=== PATIENT | female | born 1995 | race African-American/Black ===

== ENCOUNTER 2020-03-19 07:01 | Day surgery (SDC) | payer MEDICAID, SELFPAY ==
[~2020-03-19] VITALS: Ht 154.9 cm; Wt 93.9 kg
[2020-03-19 07:40] LABS: HCG,QUAL RESULT NEGATIVE (NEGATIVE)
[2020-03-19] MEDS ORDERED: HYDROmorphone 1 MG INJ. 1 MG/ML AMPUL IVP PRN ×2 (08:45)
[2020-03-19] MEDS ORDERED: ONDANSETRON HCL 4 MG/2 ML VIAL IVP PRN (08:45)
[2020-03-19] MEDS ORDERED: ALBUTEROL SULFATE 0.083% 2.5 MG/3 ML VIAL.NEB INH ONE ×2 (10:00→10:19)
[2020-03-19] MEDS ORDERED: HYDROmorphone 1 MG INJ. 1 MG/ML AMPUL ONE (10:30)
[2020-03-19 14:07] VITALS: BP_SYST 127
== END 2020-03-19 13:45 | disposition home or self-care (01) ==
LOC: SDS 07:01 → SMU 07:03 → SDS 13:45
PROVIDERS: ATTEND Obstetrics & Gynecology
DX: N73.6 Female pelvic peritoneal adhesions (postinfective) (principal); N80.9 Endometriosis, unspecified; J45.909 Unspecified asthma, uncomplicated; G89.29 Other chronic pain; Z79.899 Other long term (current) drug therapy; Z20.828 Contact with and (suspected) exposure to other viral communicable diseases
CPT/HCPCS: 36415; 58660; 84703; 86886; 86900; 86901; 94640; C1727; J1170; J7613; U0003

== ENCOUNTER 2022-01-05 14:53 | Emergency (ER) | payer MEDICAID ==
[~2022-01-05] VITALS: Ht 152.4 cm; Wt 93.9 kg
[2022-01-05 15:19] VITALS: BP_SYST 159
--- NOTE | 2022-01-05 15:19 | NUR ---
Pt triaged and placed in waiting room pending MD eval/bed availability.
--- NOTE | 2022-01-05 15:20 | NUR ---
Pt here from home reporting RLQ pain radiating to LLQ 10/10 x 4 days. Pt has hx fibroids and ovarian cysts. Pt also stating she is feeling dizzy. Placed in wheelchair for safety. Urine cup provided for sample. In waiting area pending MD jimenez.
[2022-01-05 15:58] LABS: BASOPHILS % (AUTO) 0.3 % (0.0-2.0); EOSINOPHILS # (AUTO) 0.1 K/uL (0.0-0.4); HEMATOCRIT 34.4 % (36-48); HEMOGLOBIN 11.7 g/dL (12.0-16.0); LYMPHOCYTES # (AUTO) 1.7 K/uL (1.0-5.5); LYMPHOCYTES % (AUTO) 23.9 % (20.5-51.5); MEAN CORPUSCULAR HEMOGLOBIN 26 pg (27-31); MEAN CORPUSCULAR HGB CONC 34 % (32-36); MEAN CORPUSCULAR VOLUME 76 fL (79.0-98.0); MONOCYTES # (AUTO) 0.4 K/uL (0.0-1.0); NEUTROPHILS # (AUTO) 5.1 K/uL (1.8-7.7); NEUTROPHILS % (AUTO) 69.8 % (40.0-70.0); PLATELET COUNT (AUTO) 325 K/uL (130-430); RED BLOOD CELL COUNT(AUTO) 4.53 MIL/uL (4.2-6.2); RED CELL DISTRIBUTION WIDTH 13.7 % (9.0-15.0); WHITE BLOOD COUNT (AUTO) 7.3 K/uL (4.8-10.8)
--- NOTE | 2022-01-05 16:20 | NUR ---
Patient to ER bed H1 for evaluation. Side rails up. Report given to Carole SMITH.
[2022-01-05 16:29] LABS: CALCIUM 8.2 mg/dL (8.4-11.0); CREATININE 0.77 mg/dL (0.55-1.30); POTASSIUM 4.1 mmol/L (3.5-5.1)
[2022-01-05 16:35] LABS: ALBUMIN 3.8 g/dL (3.4-4.8); TOTAL BILIRUBIN 0.2 mg/dL (0.0-1.0)
[2022-01-05 16:37] LABS: BILIRUBIN,URINE NEGATIVE (NEGATIVE); BLOOD, URINE NEGATIVE (NEGATIVE); CLARITY/URINE CLEAR (CLEAR); COLOR,URINE YELLOW (YELLOW); GLUCOSE,URINE NEGATIVE (NEGATIVE); KETONES,URINE NEGATIVE (NEGATIVE); LEUKOCYTE ESTERASE ,URINE NEGATIVE (NEGATIVE); NITRITE, URINE NEGATIVE (NEGATIVE); PROTEIN URINE NEGATIVE (NEGATIVE); UROBILINOGEN,URINE 0.2 (0.2-1.0)
[2022-01-05] MEDS ORDERED: MORPHINE 4 MG INJ. 4 MG/ML VIAL IM ONE ×2 (17:00→19:15)
--- NOTE | 2022-01-05 18:07 | NUR ---
ER at bedside examining patient.
--- NOTE | 2022-01-05 18:09 | NUR ---
Pt with radiology for ultrasound.
[2022-01-05] MEDS ORDERED: HYDR-3917 PO ×2 (19:30→20:31)
[2022-01-05] MEDS ORDERED: FLUCONAZOLE 100 MG TABLET (DIFLUCAN) PO ONE (20:00)
[2022-01-05 20:40] VITALS: BP_SYST 150
--- NOTE | 2022-01-05 20:40 | NUR ---
Patient given written and verbal discharge instructions and verbalizes understanding. ER Dr. Jimenez discussed with patient the results and treatment provided. Patient in stable condition. ID arm band removed. Rx of norco given. Patient educated on pain management and to follow up with PMD. Pain Scale 0. Opportunity for questions provided and answered. Medication side effect fact sheet provided.
== END 2022-01-05 20:40 | disposition home or self-care (01) ==
LOC: SED 14:53
DX: D25.9 Leiomyoma of uterus, unspecified (principal); B37.3 Candidiasis of vulva and vagina; K21.9 Gastro-esophageal reflux disease without esophagitis; Z79.899 Other long term (current) drug therapy; Z88.8 Allergy status to other drugs, medicaments and biological substances
CPT/HCPCS: 36415; 76856; 80053; 81003; 81025; 83690; 84702; 85025; 96372; 99284; J2270

== ENCOUNTER 2022-01-27 17:16 | Emergency (ER) | payer MEDICAID ==
[~2022-01-27] VITALS: Ht 152.4 cm; Wt 93.9 kg
[~2022-01-27 17:16] MED LIST: HYDR-3917 PO
--- NOTE | 2022-01-27 18:48 | NUR ---
Triaged pt and placed in waiting room until bed becomes available. Pt is A&Ox4. Pt c/o abdominal pain 10/10 and right knee pain 6/10 for two weeks. Pt ambulatory with steady gait and coming from home. Allergic to Toradol and Penicillin. Has hx of Asthma, HTN, ovarian cysts, and fibroids. VSS. Skin intact. No chest pain and no sob. No trauma.
[2022-01-27 18:51] VITALS: BP_SYST 150
[2022-01-27 22:51] LABS: BILIRUBIN,URINE NEGATIVE (NEGATIVE); BLOOD, URINE NEGATIVE (NEGATIVE); CLARITY/URINE CLEAR (CLEAR); COLOR,URINE ORANGE (YELLOW); GLUCOSE,URINE NEGATIVE (NEGATIVE); KETONES,URINE NEGATIVE (NEGATIVE); LEUKOCYTE ESTERASE ,URINE NEGATIVE (NEGATIVE); NITRITE, URINE NEGATIVE (NEGATIVE); PROTEIN URINE TRACE (NEGATIVE); UROBILINOGEN,URINE 0.2 (0.2-1.0)
[2022-01-27] MEDS ORDERED: HYDROcodone/ACETAMIN 5-325 MG TAB (NORCO/ VICODIN) PO ONE (23:15)
[2022-01-27 23:16] LABS: BASOPHILS % (AUTO) 0.6 % (0.0-2.0); EOSINOPHILS # (AUTO) 0.1 K/uL (0.0-0.4); EOSINOPHILS % (AUTO) 1.3 % (0.0-4.0); HEMATOCRIT 36.8 % (36-48); HEMOGLOBIN 12.6 g/dL (12.0-16.0); LYMPHOCYTES # (AUTO) 2.5 K/uL (1.0-5.5); LYMPHOCYTES % (AUTO) 37.2 % (20.5-51.5); MEAN CORPUSCULAR HEMOGLOBIN 26 pg (27-31); MEAN CORPUSCULAR HGB CONC 34 % (32-36); MEAN CORPUSCULAR VOLUME 76 fL (79.0-98.0); MONOCYTES # (AUTO) 0.4 K/uL (0.0-1.0); MONOCYTES % (AUTO) 6.2 % (1.7-9.3); NEUTROPHILS # (AUTO) 3.7 K/uL (1.8-7.7); NEUTROPHILS % (AUTO) 54.7 % (40.0-70.0); PLATELET COUNT (AUTO) 279 K/uL (130-430); RED BLOOD CELL COUNT(AUTO) 4.83 MIL/uL (4.2-6.2); RED CELL DISTRIBUTION WIDTH 14.2 % (9.0-15.0); WHITE BLOOD COUNT (AUTO) 6.7 K/uL (4.8-10.8)
[2022-01-27 23:21] LABS: CALCIUM 9.2 mg/dL (8.4-11.0); CREATININE 0.79 mg/dL (0.55-1.30)
[2022-01-27 23:32] LABS: ALBUMIN 4.1 g/dL (3.4-4.8); TOTAL BILIRUBIN 0.3 mg/dL (0.0-1.0)
--- NOTE | 2022-01-27 23:55 | NUR ---
ROB Villavicencio at bedside examining patient.
--- NOTE | 2022-01-27 23:55 | NUR ---
Patient to ER bed 5 to gown for evaluation. Side rails up.
--- NOTE | 2022-01-28 00:10 | NUR ---
Pt came from home with c/o of lower abd pain since 1400 rated 7/10, pt reports it is non-stop. Pt reports right knee pain rated 8/10 for 2 weeks, pt reports hearing a pop. Pt is ambulatory, following commands, and appropriate. Safety precautions in place.
[2022-01-28] MEDS ORDERED: DEXAMETHASONE SOD PHOSPHATE 10 MG/ML VIAL IVP ONE (02:15)
--- NOTE | 2022-01-28 02:25 | NUR ---
Ultrasound being done at bedside. Female ornamenter hand present.
[2022-01-28] MEDS ORDERED: DEXAMETHASONE SOD PHOSPHATE 10 MG/ML VIAL IM ONE (02:45)
[2022-01-28] MEDS ORDERED: HYDR-3917 PO (03:26)
[2022-01-28] MEDS ORDERED: PRED20TA PO (03:26)
[2022-01-28 03:35] VITALS: BP_SYST 144
--- NOTE | 2022-01-28 03:35 | NUR ---
Patient given written and verbal discharge instructions and verbalizes understanding. ER Dr. Parter discussed with patient the results and treatment provided. Patient in stable condition. ID arm band removed. IV catheter removed intact and dressing applied, no active bleeding. Rx of norco and prednisone given. Patient educated on pain management and to follow up with PMD. Pain Scale 4. Opportunity for questions provided and answered. Medication side effect fact sheet provided.
== END 2022-01-28 03:35 | disposition home or self-care (01) ==
LOC: SED 17:16
DX: N83.201 Unspecified ovarian cyst, right side (principal); S86.811A Strain of other muscle(s) and tendon(s) at lower leg level, right leg, initial encounter; K21.9 Gastro-esophageal reflux disease without esophagitis; Z88.8 Allergy status to other drugs, medicaments and biological substances; Z79.899 Other long term (current) drug therapy; X50.9XXA Other and unspecified overexertion or strenuous movements or postures, initial encounter; Y93.89 Activity, other specified; Y92.89 Other specified places as the place of occurrence of the external cause; Y99.8 Other external cause status
CPT/HCPCS: 99285; 80053; 84703; 85025; 36415; 81003; 76830; 76857; 73560; 96372; J1100

== ENCOUNTER 2022-07-06 18:08 | Emergency (ER) | payer MEDICAID ==
[~2022-07-06] VITALS: Ht 172.7 cm; Wt 88.5 kg
[~2022-07-06 18:08] MED LIST changes: +PRED20TA PO
[2022-07-06 18:31] VITALS: BP_SYST 152
[2022-07-06] MEDS ORDERED: ACETAMINOPHEN 325 MG TABLET PO ONE (20:00)
[2022-07-06] MEDS ORDERED: ONDANSETRON 4 MG ODT TAB PO ONE (20:00)
--- NOTE | 2022-07-06 21:27 | NUR ---
27 y/o F, ambulatory to ED with c/o lower abdominal pain radiating to the back x 2-3 days. (+) Nausea, (-) vomiting, dysuria, hematuria.
--- NOTE | 2022-07-06 22:23 | NUR ---
Confirmed with pt reaction to Toradol; per pt she states she had a mild reaction once when given toradol and she broke out in a mild rash. Pt okay with receiving Toradol at this time; will monitor for any reaction.
--- NOTE | 2022-07-06 22:29 | NUR ---
Received report from LIEN Licea; assuming care of patient at this time.
[2022-07-06] MEDS ORDERED: KETOROLAC TROMETHAMINE 60 MG/2 ML VIAL IM ONE (22:30)
[2022-07-06] MEDS ORDERED: MORPHINE 4 MG INJ. 4 MG/ML VIAL IM ONE (22:30)
--- NOTE | 2022-07-06 22:30 | NUR ---
Patient A/Ox4, VSS, ambulatory, resp even and unlabored. Patient lying comfortably in bed with safety precautions in place. Nad noted at this time.
[2022-07-06 22:36] LABS: BILIRUBIN,URINE NEGATIVE (NEGATIVE); COLOR,URINE YELLOW (YELLOW); GLUCOSE,URINE NEGATIVE (NEGATIVE); KETONES,URINE NEGATIVE (NEGATIVE); NITRITE, URINE NEGATIVE (NEGATIVE); UROBILINOGEN,URINE 0.2 (0.2-1.0)
[2022-07-06 22:45] LABS: BASOPHILS % (AUTO) 0.5 % (0.0-2.0); EOSINOPHILS % (AUTO) 0.6 % (0.0-4.0); HEMATOCRIT 39.3 % (36-48); HEMOGLOBIN 13.1 g/dL (12.0-16.0); LYMPHOCYTES # (AUTO) 1.6 K/uL (1.0-5.5); LYMPHOCYTES % (AUTO) 25.2 % (20.5-51.5); MEAN CORPUSCULAR HEMOGLOBIN 25 pg (27-31); MEAN CORPUSCULAR HGB CONC 33 % (32-36); MEAN CORPUSCULAR VOLUME 76 fL (79.0-98.0); MONOCYTES # (AUTO) 0.3 K/uL (0.0-1.0); NEUTROPHILS # (AUTO) 4.4 K/uL (1.8-7.7); NEUTROPHILS % (AUTO) 68.7 % (40.0-70.0); PLATELET COUNT (AUTO) 333 K/uL (130-430); RED BLOOD CELL COUNT(AUTO) 5.17 MIL/uL (4.2-6.2); RED CELL DISTRIBUTION WIDTH 15.1 % (9.0-15.0); WHITE BLOOD COUNT (AUTO) 6.4 K/uL (4.8-10.8)
[2022-07-06 22:52] LABS: CLARITY/URINE HAZY (CLEAR)
[2022-07-06 23:04] LABS: BLOOD, URINE TRACE (NEGATIVE); LEUKOCYTE ESTERASE ,URINE TRACE (NEGATIVE); PROTEIN URINE TRACE (NEGATIVE)
[2022-07-06 23:07] LABS: BACTERIA,URINE MODERATE /HPF (None Seen)
[2022-07-06 23:08] LABS: CALCIUM 9.5 mg/dL (8.4-11.0); CREATININE 0.76 mg/dL (0.55-1.30)
[2022-07-06 23:08] LABS: MUCUS,URINE 2+ /LPF (None Seen)
[2022-07-06 23:14] LABS: ALBUMIN 4.3 g/dL (3.4-4.8); TOTAL BILIRUBIN 0.3 mg/dL (0.0-1.0)
[2022-07-07] MEDS ORDERED: MORPHINE 4 MG INJ. 4 MG/ML VIAL IM ONE
--- NOTE | 2022-07-07 | NUR ---
ROB KINGSTON Kwaw at bedside.
[2022-07-07] MEDS ORDERED: PHEN-726 PO (00:58)
[2022-07-07] MEDS ORDERED: NITR-85 PO (00:58)
[2022-07-07 01:01] VITALS: BP_SYST 149
--- NOTE | 2022-07-07 01:01 | NUR ---
Patient given written and verbal discharge instructions and verbalizes understanding. ER MD discussed with patient the results and treatment provided. Patient in stable condition. ID arm band removed. Rx of macrobid and pyridium given. Patient educated on pain management and to follow up with PMD. Pain Scale 3/10. Opportunity for questions provided and answered. Medication side effect fact sheet provided. Patient A/Ox4, VSS, ambulatory, resp even and unlabored. Patient accompanied by mother and in stable condition upon discharge.
== END 2022-07-07 01:01 | disposition home or self-care (01) ==
LOC: SED 18:08
DX: N39.0 Urinary tract infection, site not specified (principal); R10.32 Left lower quadrant pain; K21.9 Gastro-esophageal reflux disease without esophagitis; R11.0 Nausea; Z88.6 Allergy status to analgesic agent; Z79.899 Other long term (current) drug therapy
CPT/HCPCS: 99284; 74176; 80053; 81000; 83690; 85025; 87086; 87210; 36415; 76376; 81025; 96372 ×2; Q0162; J1885; J2270 ×2

== ENCOUNTER 2022-07-20 22:44 | Emergency (ER) | payer MEDICAID ==
[~2022-07-20] VITALS: Ht 152.4 cm; Wt 100.2 kg
[~2022-07-20 22:44] MED LIST changes: +NITR-85 PO; +PHEN-726 PO
[2022-07-20 23:00] VITALS: BP_SYST 146
[2022-07-20] MEDS ORDERED: HYDR-3917 PO (23:44)
[2022-07-20] MEDS ORDERED: MORPHINE 4 MG INJ. 4 MG/ML VIAL IM ONE (23:45)
[2022-07-21 00:20] VITALS: BP_SYST 135
== END 2022-07-21 00:20 | disposition home or self-care (01) ==
LOC: SED 22:44
DX: R10.32 Left lower quadrant pain (principal); R11.0 Nausea; R19.7 Diarrhea, unspecified; J45.909 Unspecified asthma, uncomplicated; I10 Essential (primary) hypertension; Z88.6 Allergy status to analgesic agent; Z79.899 Other long term (current) drug therapy
CPT/HCPCS: 99283; 81002; 81025; 96372; J2270

== ENCOUNTER 2022-08-29 15:58 | Emergency (ER) | payer MEDICAID ==
[~2022-08-29] VITALS: Ht 152.4 cm; Wt 100.2 kg
[2022-08-29 16:09] VITALS: BP_SYST 147
--- NOTE | 2022-08-29 16:45 | NUR ---
MD YAOAW IN TRIAGE FOR MSE.
[2022-08-29 16:54] VITALS: BP_SYST 137
--- NOTE | 2022-08-29 16:54 | NUR ---
Patient given written and verbal discharge instructions and verbalizes understanding. ER MD discussed with patient the results and treatment provided. Patient in stable condition. ID arm band removed. IV catheter removed intact and dressing applied, no active bleeding. Rx of N/A given. Patient educated on pain management and to follow up with PMD. Pain Scale 0/10 Opportunity for questions provided and answered. Medication side effect fact sheet provided.
== END 2022-08-29 16:54 | disposition home or self-care (01) ==
LOC: SED 15:58
DX: Z00.00 Encounter for general adult medical examination without abnormal findings (principal); J45.909 Unspecified asthma, uncomplicated; I10 Essential (primary) hypertension; Z88.0 Allergy status to penicillin; Z88.6 Allergy status to analgesic agent; Z79.899 Other long term (current) drug therapy
CPT/HCPCS: 99281

== ENCOUNTER 2022-10-22 05:09 | Emergency (ER) | payer MEDICAID ==
[~2022-10-22] VITALS: Ht 152.4 cm; Wt 97.5 kg
[2022-10-22 05:28] VITALS: BP_SYST 151
--- NOTE | 2022-10-22 05:28 | NUR ---
Patient triaged and placed in ED bed 7. VSS and patient appears in no acute distress at this time. Accompanied by family member. MD notified of need for MSE.
--- NOTE | 2022-10-22 05:43 | NUR ---
Report given to LIEN Morales; assuming patient cares at this time.
--- NOTE | 2022-10-22 06:03 | NUR ---
pt a/o x 4 c/o pain when urinating, hx of endometriosis and uti. c/o pain 05/03 in back
[2022-10-22 06:10] LABS: BILIRUBIN,URINE NEGATIVE (NEGATIVE); BLOOD, URINE 1+ (NEGATIVE); COLOR,URINE YELLOW (YELLOW); GLUCOSE,URINE NEGATIVE (NEGATIVE); KETONES,URINE NEGATIVE (NEGATIVE); LEUKOCYTE ESTERASE ,URINE NEGATIVE (NEGATIVE); NITRITE, URINE NEGATIVE (NEGATIVE); PH,URINE 5.5 (5.0-8.0); PROTEIN URINE NEGATIVE (NEGATIVE); UROBILINOGEN,URINE 0.2 (0.2-1.0)
--- NOTE | 2022-10-22 06:15 | NUR ---
md at bedside examining patient
[2022-10-22 06:24] LABS: CLARITY/URINE HAZY (CLEAR)
[2022-10-22 06:25] LABS: BACTERIA,URINE None Seen /HPF (None Seen); WBC,URINE 0-3 /HPF (0-3)
[2022-10-22 06:32] LABS: BASOPHILS % (AUTO) 0.6 % (0.0-2.0); EOSINOPHILS # (AUTO) 0.1 K/uL (0.0-0.4); EOSINOPHILS % (AUTO) 0.9 % (0.0-4.0); HEMATOCRIT 37.3 % (36-48); HEMOGLOBIN 12.6 g/dL (12.0-16.0); LYMPHOCYTES # (AUTO) 2.1 K/uL (1.0-5.5); LYMPHOCYTES % (AUTO) 32.3 % (20.5-51.5); MEAN CORPUSCULAR HEMOGLOBIN 26 pg (27-31); MEAN CORPUSCULAR HGB CONC 34 % (32-36); MEAN CORPUSCULAR VOLUME 77 fL (79.0-98.0); MONOCYTES # (AUTO) 0.4 K/uL (0.0-1.0); MONOCYTES % (AUTO) 6.6 % (1.7-9.3); NEUTROPHILS % (AUTO) 59.6 % (40.0-70.0); PLATELET COUNT (AUTO) 274 K/uL (130-430); RED BLOOD CELL COUNT(AUTO) 4.88 MIL/uL (4.2-6.2); RED CELL DISTRIBUTION WIDTH 14.9 % (9.0-15.0); WHITE BLOOD COUNT (AUTO) 6.6 K/uL (4.8-10.8)
--- NOTE | 2022-10-22 07:00 | NUR ---
johnathan elizondo md is aware
[2022-10-22 07:05] LABS: CALCIUM 8.9 mg/dL (8.4-11.0); CREATININE 0.71 mg/dL (0.55-1.30)
[2022-10-22 07:10] LABS: ALBUMIN 3.9 g/dL (3.4-4.8); TOTAL BILIRUBIN 0.2 mg/dL (0.0-1.0)
== END 2022-10-22 07:00 | disposition left against medical advice (07) ==
LOC: SED 05:09
DX: R10.30 Lower abdominal pain, unspecified (principal); M54.50 Low back pain, unspecified; J45.909 Unspecified asthma, uncomplicated; I10 Essential (primary) hypertension; Z88.0 Allergy status to penicillin; Z88.6 Allergy status to analgesic agent; Z79.899 Other long term (current) drug therapy
CPT/HCPCS: 36415; 76376; 80053; 81000; 81025; 85025; 86592; 87491; 99284

== ENCOUNTER 2023-09-20 01:34 | Emergency (ER) | payer MEDICAID ==
[~2023-09-20] VITALS: Ht 152.4 cm; Wt 87.1 kg
[2023-09-20 01:53] VITALS: BP_SYST 161; PULSE 92; RESP 16; TEMP 98.5; O2SAT 100
[2023-09-20 02:18] LABS: BASOPHILS # (AUTO) 0.1 K/uL (0.0-0.2); BASOPHILS % (AUTO) 0.7 % (0.0-2.0); EOSINOPHILS # (AUTO) 0.1 K/uL (0.0-0.4); EOSINOPHILS % (AUTO) 1.3 % (0.0-4.0); HEMATOCRIT 31.7 % (36-48); HEMOGLOBIN 10.7 g/dL (12.0-16.0); LYMPHOCYTES # (AUTO) 2.4 K/uL (1.0-5.5); LYMPHOCYTES % (AUTO) 31.8 % (20.5-51.5); MEAN CORPUSCULAR HEMOGLOBIN 25 pg (27-31); MEAN CORPUSCULAR HGB CONC 34 % (32-36); MEAN CORPUSCULAR VOLUME 73 fL (79.0-98.0); MONOCYTES # (AUTO) 0.4 K/uL (0.0-1.0); MONOCYTES % (AUTO) 5.7 % (1.7-9.3); NEUTROPHILS # (AUTO) 4.7 K/uL (1.8-7.7); NEUTROPHILS % (AUTO) 60.5 % (40.0-70.0); PLATELET COUNT (AUTO) 315 K/uL (130-430); RED BLOOD CELL COUNT(AUTO) 4.32 MIL/uL (4.2-6.2); RED CELL DISTRIBUTION WIDTH 14.7 % (9.0-15.0); WHITE BLOOD COUNT (AUTO) 7.7 K/uL (4.8-10.8)
[2023-09-20] MEDS: ONDANSETRON HCL 4 MG/2 ML VIAL IVP ONE (02:21)
[2023-09-20] MEDS: MORPHINE 4 MG INJ. 4 MG/ML VIAL IVP ONE ×2 (02:22→04:21)
[2023-09-20 02:25] LABS: CALCIUM 9.2 mg/dL (8.4-11.0); CREATININE 0.73 mg/dL (0.55-1.30); POTASSIUM 3.9 mmol/L (3.5-5.1)
[2023-09-20 02:31] LABS: ALBUMIN 3.6 g/dL (3.4-4.8); TOTAL BILIRUBIN 0.2 mg/dL (0.0-1.0); TOTAL PROTEIN, SERUM 7.5 g/dL (6.4-8.3)
[2023-09-20 02:33] LABS: BILIRUBIN,URINE NEGATIVE (NEGATIVE); BLOOD, URINE NEGATIVE (NEGATIVE); COLOR,URINE YELLOW (YELLOW); GLUCOSE,URINE NEGATIVE (NEGATIVE); KETONES,URINE NEGATIVE (NEGATIVE); LEUKOCYTE ESTERASE ,URINE NEGATIVE (NEGATIVE); NITRITE, URINE NEGATIVE (NEGATIVE); PROTEIN URINE NEGATIVE (NEGATIVE); UROBILINOGEN,URINE 0.2 (0.2-1.0)
[2023-09-20 02:41] LABS: BARBITURATE, URINE NEGATIVE (NEG <=200); BENZODIAZEPINE, URINE NEGATIVE (NEG <=150); CANNABINOID, URINE NEGATIVE (NEG <=50); COCAINE, URINE NEGATIVE (NEG <=150); METHAMPHETAMINES SCREEN,URINE NEGATIVE (NEG <=500); OPIATE, URINE POSITIVE (NEG <=100); URINE AMPHETAMINE NEGATIVE (NEG <=500); URINE METHADONE NEGATIVE (NEG <=200)
[2023-09-20 02:42] LABS: PHENCYCLIDINE SCREEN,URINE NEGATIVE (NEG <=25); UR TRICYCLIC ANTIDEPRESSANTS NEGATIVE (NEG <=300); URINE OXYCODONE SCREEN NEGATIVE (NEG <=100)
[2023-09-20 02:44] LABS: CLARITY/URINE CLEAR (CLEAR)
[2023-09-20] MEDS ORDERED: MORPHINE 4 MG INJ. 4 MG/ML VIAL ONE (03:18)
[2023-09-20 04:35] VITALS: BP_SYST 149; PULSE 101; RESP 20; TEMP 97.8; O2SAT 100
== END 2023-09-20 04:35 | disposition home or self-care (01) ==
LOC: SED 01:34
DX: R10.2 Pelvic and perineal pain (principal); R11.0 Nausea; R19.7 Diarrhea, unspecified; J45.909 Unspecified asthma, uncomplicated; I10 Essential (primary) hypertension; Z88.0 Allergy status to penicillin; Z88.6 Allergy status to analgesic agent; Z79.899 Other long term (current) drug therapy
CPT/HCPCS: 99285; 96374; 76856; 96375; 80307; 80053; 83690; 85025; 36415; 96376; 81025; 81003; 81001; J2405; J2270

== ENCOUNTER 2023-11-23 23:07 | Emergency (ER) | payer MEDICAID ==
[~2023-11-23] VITALS: Ht 152.4 cm; Wt 82.6 kg
[2023-11-23 23:17] VITALS: BP_SYST 144; PULSE 74; RESP 16; TEMP 99.2; O2SAT 100
[2023-11-24] MEDS: NS 500 ML IV ONE (00:45)
[2023-11-24 01:00] LABS: BASOPHILS % (AUTO) 0.4 % (0.0-2.0); EOSINOPHILS # (AUTO) 0.1 K/uL (0.0-0.4); EOSINOPHILS % (AUTO) 1.7 % (0.0-4.0); HEMATOCRIT 30.4 % (36-48); HEMOGLOBIN 10.1 g/dL (12.0-16.0); LYMPHOCYTES # (AUTO) 2.6 K/uL (1.0-5.5); LYMPHOCYTES % (AUTO) 36.9 % (20.5-51.5); MEAN CORPUSCULAR HEMOGLOBIN 24 pg (27-31); MEAN CORPUSCULAR HGB CONC 33 % (32-36); MEAN CORPUSCULAR VOLUME 71 fL (79.0-98.0); MONOCYTES # (AUTO) 0.4 K/uL (0.0-1.0); MONOCYTES % (AUTO) 6.2 % (1.7-9.3); NEUTROPHILS # (AUTO) 3.8 K/uL (1.8-7.7); NEUTROPHILS % (AUTO) 54.8 % (40.0-70.0); PLATELET COUNT (AUTO) 327 K/uL (130-430); RED BLOOD CELL COUNT(AUTO) 4.28 MIL/uL (4.2-6.2)
[2023-11-24] MEDS: ACETAMINOPHEN 325 MG TABLET PO ONE (01:01)
[2023-11-24 01:52] LABS: CALCIUM 8.7 mg/dL (8.4-11.0); CREATININE 0.68 mg/dL (0.55-1.30)
[2023-11-24 02:05] LABS: BILIRUBIN,URINE NEGATIVE (NEGATIVE); COLOR,URINE YELLOW (YELLOW); GLUCOSE,URINE NEGATIVE (NEGATIVE); KETONES,URINE NEGATIVE (NEGATIVE); LEUKOCYTE ESTERASE ,URINE NEGATIVE (NEGATIVE); NITRITE, URINE NEGATIVE (NEGATIVE); PROTEIN URINE NEGATIVE (NEGATIVE); UROBILINOGEN,URINE 0.2 (0.2-1.0)
[2023-11-24 02:13] LABS: BLOOD, URINE 1+ (NEGATIVE)
[2023-11-24 02:14] LABS: BACTERIA,URINE None Seen /HPF (None Seen); CLARITY/URINE HAZY (CLEAR); WBC,URINE 0-3 /HPF (0-3)
[2023-11-24] MEDS: MORPHINE 2 MG/ML INJ. SYRINGE IVP ONE (02:50)
[2023-11-24] MEDS: ONDANSETRON HCL 4 MG/2 ML VIAL IVP ONE (02:57)
[2023-11-24 04:32] LABS: BARBITURATE, URINE NEGATIVE (NEG <=200); BENZODIAZEPINE, URINE NEGATIVE (NEG <=150); CANNABINOID, URINE NEGATIVE (NEG <=50); COCAINE, URINE NEGATIVE (NEG <=150); METHAMPHETAMINES SCREEN,URINE NEGATIVE (NEG <=500); OPIATE, URINE POSITIVE (NEG <=100); PHENCYCLIDINE SCREEN,URINE NEGATIVE (NEG <=25); URINE AMPHETAMINE NEGATIVE (NEG <=500); URINE METHADONE NEGATIVE (NEG <=200); URINE OXYCODONE SCREEN NEGATIVE (NEG <=100)
[2023-11-24 04:33] LABS: UR TRICYCLIC ANTIDEPRESSANTS NEGATIVE (NEG <=300)
[2023-11-24 05:00] VITALS: BP_SYST 136; PULSE 87; RESP 18; TEMP 98.6; O2SAT 99
== END 2023-11-24 04:55 | disposition home or self-care (01) ==
LOC: SED 23:07
DX: O20.0 Threatened abortion (principal); I10 Essential (primary) hypertension; Z88.0 Allergy status to penicillin; Z88.8 Allergy status to other drugs, medicaments and biological substances; Z3A.01 Less than 8 weeks gestation of pregnancy
CPT/HCPCS: 99285; 80307; 80048; 84702; 83690; 85025; 86901; 36415; 81000; 81001; 96374; 76856; 96361; 96375; 81015; J7040; J2405; J2270

== ENCOUNTER 2024-01-24 20:07 | Emergency (ER) | payer MEDICAID ==
[~2024-01-24] VITALS: Ht 152.4 cm; Wt 82.6 kg
[2024-01-24 20:24] VITALS: BP_SYST 125; PULSE 84; RESP 20; TEMP 98; O2SAT 99
[2024-01-24 21:07] LABS: BASOPHILS % (AUTO) 0.4 % (0.0-2.0); EOSINOPHILS % (AUTO) 0.6 % (0.0-4.0); HEMATOCRIT 31.5 % (36-48); HEMOGLOBIN 10.6 g/dL (12.0-16.0); LYMPHOCYTES # (AUTO) 1.8 K/uL (1.0-5.5); LYMPHOCYTES % (AUTO) 23.2 % (20.5-51.5); MEAN CORPUSCULAR HEMOGLOBIN 24 pg (27-31); MEAN CORPUSCULAR HGB CONC 34 % (32-36); MEAN CORPUSCULAR VOLUME 72 fL (79.0-98.0); MONOCYTES # (AUTO) 0.4 K/uL (0.0-1.0); MONOCYTES % (AUTO) 4.9 % (1.7-9.3); NEUTROPHILS # (AUTO) 5.4 K/uL (1.8-7.7); NEUTROPHILS % (AUTO) 70.9 % (40.0-70.0); PLATELET COUNT (AUTO) 308 K/uL (130-430); RED BLOOD CELL COUNT(AUTO) 4.37 MIL/uL (4.2-6.2); RED CELL DISTRIBUTION WIDTH 15.8 % (9.0-15.0); WHITE BLOOD COUNT (AUTO) 7.6 K/uL (4.8-10.8)
[2024-01-24 21:18] LABS: BILIRUBIN,URINE NEGATIVE (NEGATIVE); BLOOD, URINE NEGATIVE (NEGATIVE); COLOR,URINE YELLOW (YELLOW); GLUCOSE,URINE NEGATIVE (NEGATIVE); KETONES,URINE NEGATIVE (NEGATIVE); LEUKOCYTE ESTERASE ,URINE NEGATIVE (NEGATIVE); NITRITE, URINE NEGATIVE (NEGATIVE); PROTEIN URINE NEGATIVE (NEGATIVE); UROBILINOGEN,URINE 0.2 (0.2-1.0)
[2024-01-24 21:41] LABS: CLARITY/URINE SLIGHTLY HAZY (CLEAR)
[2024-01-24 21:43] LABS: ALBUMIN 3.1 g/dL (3.4-4.8); BILIRUBIN,DIRECT 0.1 mg/dL (0.0-0.3); CALCIUM 9.4 mg/dL (8.4-11.0); CREATININE 0.67 mg/dL (0.55-1.30); POTASSIUM 4.2 mmol/L (3.5-5.1); TOTAL BILIRUBIN 0.1 mg/dL (0.0-1.0); TOTAL PROTEIN, SERUM 8.2 g/dL (6.4-8.3)
[2024-01-24 21:43] LABS: BACTERIA,URINE MODERATE /HPF (None Seen); MUCUS,URINE 2+ /LPF (None Seen); RBC,URINE NONE SEEN /HPF (0-3)
[2024-01-24 22:21] LABS: ANISOCYTOSIS 1+; HYPOCHROMASIA 1+
[2024-01-24 22:22] LABS: OVALOCYTES MODERATE; TEAR DROP CELLS FEW
[2024-01-24] MEDS ORDERED: ACETAMINOPHEN 500 MG TABLET ONE (22:45)
[2024-01-24] MEDS: ACETAMINOPHEN 500 MG TABLET PO ONE (22:49)
[2024-01-24 22:50] VITALS: BP_SYST 123; PULSE 84; RESP 20; TEMP 98; O2SAT 99
== END 2024-01-24 22:50 | disposition home or self-care (01) ==
LOC: SED 20:07
DX: O99.612 Diseases of the digestive system complicating pregnancy, second trimester (principal); R10.31 Right lower quadrant pain; J45.909 Unspecified asthma, uncomplicated; I10 Essential (primary) hypertension; Z3A.14 14 weeks gestation of pregnancy; Z90.49 Acquired absence of other specified parts of digestive tract; Z98.890 Other specified postprocedural states; Z88.0 Allergy status to penicillin; Z88.5 Allergy status to narcotic agent; Z88.8 Allergy status to other drugs, medicaments and biological substances; Z79.899 Other long term (current) drug therapy; Z79.2 Long term (current) use of antibiotics
CPT/HCPCS: 36415; 76805; 80048; 80076; 81000; 81001; 81015; 83690; 85025; 87086; 99284